=== PATIENT | female | born 1970 | race Native Hawaiian/Other Pacific Islander ===

== ENCOUNTER 2021-11-25 12:01 | Emergency (ER) | payer OTHER ==
[~2021-11-25] VITALS: Ht 152.4 cm; Wt 45.4 kg
[2021-11-25 12:15] VITALS: BP 118/77
[2021-11-25 12:59] LABS: PLATELET COUNT 684 K/uL (152-353)
[2021-11-25] MEDS ORDERED: ONDA4TAB3 PO (14:36)
[2021-11-25] MEDS ORDERED: CLINDAMYCIN HY300 MG PO (14:36)
[2021-11-25] MEDS ORDERED: 904272561 PO (14:36)
[2021-11-25 15:05] VITALS: TEMP 98.8
== END 2021-11-25 15:05 | disposition home or self-care (01) ==
LOC: ED 12:01
PROVIDERS: Emergency Medicine Emergency Medical Services
DX: T63.301A Toxic effect of unspecified spider venom, accidental (unintentional), initial encounter (principal); L03.116 Cellulitis of left lower limb; X58.XXXA Exposure to other specified factors, initial encounter; Y92.89 Other specified places as the place of occurrence of the external cause
CPT/HCPCS: 36415; 85027; 87040; 87070; 87077; 87185; 87186; 87205; 96365; 99284; J3490

== ENCOUNTER 2021-12-05 15:25 | Emergency (ER) | payer OTHER ==
[~2021-12-05] VITALS: Ht 152.4 cm; Wt 45.4 kg
[~2021-12-05 15:25] MED LIST: 904272561 PO; CLINDAMYCIN HY300 MG PO; ONDA4TAB3 PO
[2021-12-05 16:54] LABS: PLATELET COUNT 660 K/uL (152-353)
[2021-12-05 17:03] LABS: POTASSIUM 4.4 mmol/L (3.6-5.2)
[2021-12-05 19:20] VITALS: BP 115/70; TEMP 99.1
== END 2021-12-05 19:25 | disposition home or self-care (01) ==
LOC: ED 15:25
PROVIDERS: Family Medicine
DX: E87.1 Hypo-osmolality and hyponatremia (principal); R51.9 Headache, unspecified; T63.301A Toxic effect of unspecified spider venom, accidental (unintentional), initial encounter; X58.XXXA Exposure to other specified factors, initial encounter; Y92.89 Other specified places as the place of occurrence of the external cause
CPT/HCPCS: 80053; 81002; 85027; 86140; 87040; 96372; 99283; J1885

== ENCOUNTER 2021-12-07 13:41 | Emergency (ER) | payer OTHER ==
[~2021-12-07] VITALS: Ht 152.4 cm; Wt 45.4 kg
[2021-12-07 14:50] LABS: PLATELET COUNT 642 K/uL (152-353)
[2021-12-07 14:55] LABS: POTASSIUM 3.4 mmol/L (3.6-5.2)
[2021-12-07 15:11] LABS: PARTIAL THROMBOPLASTIN TIME 24.3 SECONDS (24.5-33.6)
[2021-12-07 23:50] VITALS: BP 174/87; TEMP 97.1
== END 2021-12-07 23:50 | disposition short-term general hospital (02) ==
LOC: ED 13:41
PROVIDERS: Family Medicine
PROC: 0T9B70Z Drainage of Bladder with Drainage Device, Via Natural or Artificial Opening (ICD-10-PCS; principal; 2021-12-07)
PROC: 0BH17EZ Insertion of Endotracheal Airway into Trachea, Via Natural or Artificial Opening (ICD-10-PCS; 2021-12-07)
PROC: 5A1935Z Respiratory Ventilation, Less than 24 Consecutive Hours (ICD-10-PCS; 2021-12-07)
PROC: 0D9670Z Drainage of Stomach with Drainage Device, Via Natural or Artificial Opening (ICD-10-PCS; 2021-12-07)
DX: J18.9 Pneumonia, unspecified organism (principal); R56.9 Unspecified convulsions; R00.0 Tachycardia, unspecified; R06.03 Acute respiratory distress; Z11.52 Encounter for screening for COVID-19; F17.210 Nicotine dependence, cigarettes, uncomplicated
CPT/HCPCS: 36415; 36600; 51702; 80053; 81000; 82550; 82805; 84484; 85027; 85610; 85730; 87635; 93005; 94660; 94664; 96360; 96365; 96366; 96375; 96376; 99285; J0330; J0696; J1940; J1953; J2250; J3360; J3490; U0003

== ENCOUNTER 2022-02-01 05:54 | Emergency (ER) | payer OTHER ==
[~2022-02-01] VITALS: Ht 152.4 cm; Wt 36.3 kg
[2022-02-01 06:00] VITALS: TEMP 97.5
[2022-02-01 07:03] LABS: POTASSIUM 5.1 mmol/L (3.6-5.2)
[2022-02-01 07:05] LABS: PLATELET COUNT 980 K/uL (152-353)
[2022-02-01 09:57] VITALS: BP 114/74
== END 2022-02-01 10:10 | disposition short-term general hospital (02) ==
LOC: ED 05:54
PROVIDERS: Family Medicine
DX: J18.9 Pneumonia, unspecified organism (principal); C78.02 Secondary malignant neoplasm of left lung; C78.01 Secondary malignant neoplasm of right lung; J91.0 Malignant pleural effusion; Z11.52 Encounter for screening for COVID-19
CPT/HCPCS: 36415; 36600; 80053; 82805; 83605; 85007; 85027; 85379; 85610; 87040; 87502; 87635; 93005; 94664; 96365; 96374; 96375; 99285; J2270; J3370; U0003